=== PATIENT | male | born 2000 | race Caucasian/White ===

== ENCOUNTER 2024-01-09 19:23 | Emergency (ER) | payer OTHER ==
[~2024-01-09] VITALS: Ht 172.7 cm; Wt 84.7 kg
[2024-01-09] MEDS ORDERED: TETANUS-DIPTH-ACEL PERTUSSIS 0.5ML SYR Tdap IM ONE (20:15)
[2024-01-09 20:51] LABS: Chloride 107 mmol/L (98-107); Sodium 141 mmol/L (136-145)
[2024-01-09 20:52] LABS: Anion Gap 8 (5-15); Calcium 10.2 mg/dL (8.7-10.4); Carbon Dioxide 26 mmol/L (20-31)
[2024-01-09 20:57] LABS: BUN/Creatinine Ratio 14.5 (10.0-20.0); Basophils # (auto) 0.1 10 ^3/uL (0-0.2); Basophils % (auto) 0.5 % (0.0-2.0); Blood Alcohol < 3.0 mg/dL (<10); Blood Urea Nitrogen 17 mg/dL (9-23); Eosinophils # (auto) 0.1 10 ^3/uL (0-0.8); Eosinophils % (auto) 0.7 % (0.0-7.0); Glucose 131 mg/dL (74-106); Hemoglobin 17.4 g/dL (13.5-17.5); Lymphocytes # (auto) 1.9 10 ^3/uL (0.4-5.4); Lymphocytes % (auto) 10.3 % (10.0-50.0); Mean Corpuscular Hemoglobin 29.5 pg (28.0-32.0); Mean Corpuscular Hgb Conc. 34.1 g/dL (32.0-36.0); Mean Corpuscular Volume 86.2 fL (80.0-100.0); Monocytes # (auto) 0.9 10 ^3/uL (0-1.3); Monocytes % (auto) 4.9 % (0.0-12.0); Neutrophils # (auto) 15.3 10 ^3/uL (1.6-8.6); Neutrophils % (auto) 83.6 % (37.0-80.0); Nucleated Red Blood Cells % 0.1 %; Platelet Count (auto) 444 10^3/uL (140-450); Red Blood Cells 5.91 10^6/uL (4.5-5.90); Red Cell Distribution Width 13.4 % (11.8-14.3); White Blood Cell 18.3 10^3/uL (4.4-10.8)
[2024-01-09] MEDS: IOHEXOL 300 MG/ML 100ML BOTTLE IJ ONE (21:00)
[2024-01-09] MEDS: ONDANSETRON HCL 4 MG/2 ML VIAL IV ONE (21:04)
[2024-01-09 21:06] VITALS: PULSE 98; RESP 20; O2SAT 98
[2024-01-09] MEDS: SODIUM CHLORIDE 0.9% 1,000 ML IV ONE (21:06)
[2024-01-09] MEDS: MORPHINE SULFATE 4 MG/ML SYR/VIAL IV ONE ×2 (21:06→23:27)
[2024-01-09] MEDS: TETANUS-DIPTH-ACEL PERTUSSIS 0.5ML SYR Tdap IM ONE (22:31)
[2024-01-10] MEDS: SODIUM CHLORIDE 0.9% 1,000 ML IV ONE ×2 (01:54→03:24)
[2024-01-10] MEDS: KETAMINE 50mg/ML 1ml syringe IV ONE (01:54)
[2024-01-10] MEDS: KETAMINE 50mg/ML 10ml Vial 10 ML ONE (01:56)
[2024-01-10 02:00] VITALS: TEMP 98
[2024-01-10] MEDS: BACITRACIN TOP OINT 1 UD PKG TOP ONE ×4 (02:30→03:11)
[2024-01-10] MEDS: ONDANSETRON HCL 4 MG/2 ML VIAL ONE (03:10)
[2024-01-10] MEDS: ONDANSETRON HCL 4 MG/2 ML VIAL IV ONE (03:11)
[2024-01-10] MEDS: KETOROLAC TROMETH 30 MG/ML 1ML VIAL IV ONE (03:24)
[2024-01-10 05:57] VITALS: BP 132/80; PULSE 93; RESP 18; O2SAT 98
== END 2024-01-10 06:02 | disposition home or self-care (01) ==
LOC: ER 19:23
DX: S51.011A Laceration without foreign body of right elbow, initial encounter (principal); S40.812A Abrasion of left upper arm, initial encounter; S40.811A Abrasion of right upper arm, initial encounter; R51.9 Headache, unspecified; R21 Rash and other nonspecific skin eruption; V29.99XA Rider (driver) (passenger) of other motorcycle injured in unspecified traffic accident, initial encounter; Y93.I9 Activity, other involving external motion; Y92.89 Other specified places as the place of occurrence of the external cause; Y99.8 Other external cause status
CPT/HCPCS: 12031; 36415; 70450; 71260; 72125; 73090; 73130; 74177; 80048; 80320; 83605; 85025; 90471; 90715; 96361; 96374; 96375; 96376; 99152; 99153; 99285; J1885; J2270; J2405; J7030; Q9967